=== PATIENT | female | born 1985 | race African-American/Black ===

== ENCOUNTER 2018-02-20 09:30 | Outpatient (CLI) | payer OTHER | END 2018-02-20 09:31 | disposition critical access hospital (66) | LOC: EMS 09:30 | PROVIDERS: ATTEND Surgery | DX: R42 Dizziness and giddiness (principal); R00.0 Tachycardia, unspecified; W18.39XA Other fall on same level, initial encounter; Y93.A1 Activity, exercise machines primarily for cardiorespiratory conditioning; Y92.39 Other specified sports and athletic area as the place of occurrence of the external cause | CPT/HCPCS: A0425; A0429 ==

== ENCOUNTER 2018-02-20 09:55 | Emergency (ER) | payer OTHER ==
[2018-02-20 12:03] LABS: HCG UR QUAL NEGATIVE
--- NOTE | 2018-02-20 12:20 | ED Physician Documentation ---
History of Present Illness - Stated complaint Stated Complaint: DIZZINESS - Chief complaint Chief Complaint: General - History obtained from History obtained from: Patient - History of Present Illness Timing: Prior to arrival Pain level max: 0 Pain level now: 0 - Treatment prior to arrival Treatment prior to arrival: NOTHING - Additonal information Additional information: Pt stated was on a treadmill at her job and she tripped on her foot while running to the excellent level then fell off the treadmill scraping her left knee. She was able to walk immediately. Denies any dizziness nor any symptoms prior to fall. However, her heart rate was too fast and it was not going down fast enough and pt stated she felt slightly lightheaded (not her vertigo) so she was told to go to the E.R. Pt denies any syncope or near syncope, palpitation, chest pain, SOB, nausea nor headaches. 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 - Present Medications Home Medications: Ambulatory Orders Medication Instructions Recorded Confirmed No Known Home Medications 02/20/18 02/20/18 - Allergies Allergies/Adverse Reactions: Allergies Allergy/AdvReac Type Severity Reaction Status Date / Time No Known Drug Allergies Allergy Verified 02/20/18 10:08 - Social History Does the pt smoke?: No Smoking Status: Never smoker Does the pt drink ETOH?: Yes Does the pt have substance abuse?: No - Immunizations Immunizations are current?: Yes - POLST Patient has POLST: No PD ED PE NORMAL - Vitals Vital signs reviewed: Yes - General General: Alert and oriented X 3, No acute distress, Well developed/nourished - HEENT HEENT: EOMI, Moist mucous membranes, Pharynx benign - Neck Neck: Supple, no meningeal sign, No bony TTP - Cardiac Cardiac: RRR, No murmur - Respiratory Respiratory: No respiratory distress, Clear bilaterally - Abdomen Abdomen: Normal bowel sounds, Soft, Non tender, Non distended - Back Back: No CVA TTP, No spinal TTP - Derm Derm: Normal color, Warm and dry - Extremities Extremities: No deformity, No tenderness to palpate, Normal ROM s pain, No edema, Other (ambulatory with steady gait) - Neuro Neuro: Alert and oriented X 3 - Psych Psych: Normal mood, Normal affect Results - Vitals Vitals: Vital Signs - 24 hr 02/20/18 10:02 Temperature 36.2 C L Heart Rate 87 Respiratory 15 Rate Blood Pressure 108/79 O2 Saturation 97 Oxygen O2 Source Room air - EKG (time done) 1115 Rate: Rate (enter#) Rhythm: Sinus bradycardia [place]: Normal Intervals: Normal ND QRS: Normal Ischemia: Normal ST segments - Labs Labs: Laboratory Tests 02/20/18 11:47 Ur Specific [place] 1.010 Urine HCG, Qual NEGATIVE PD MEDICAL DECISION MAKING - ED course Complexity details: considered differential (left knee contusion/abrasion, tachycardia from exercise, arrhythmia), d/w patient (Pt sitting up on the chair and feeling better and wants to go home. Pt does not want any xray, labs or work note. ) Departure - Departure Disposition: 01 Home, Self Care Clinical Impression: Muscle weakness, Dizziness Contusion of knee, left Qualifiers: Encounter type: initial encounter Qualified Code(s): S80.02XA - Contusion of left knee, initial encounter Condition: Good Instructions: ED Contusion Lower Ext, ED Dizziness [facility] Comments: FOLLOW UP WITH YOUR PCP IN 1 WEEK. MONITOR YOUR EXERCISE LEVEL SO YOU DO NOT FEEL DIZZY. YOU HAVE TO STOP WHEN FEELING DIZZY OR PALPITATIONS. ELEVATE YOUR LEFT LEG, ICE PACK TODAY, OTC TYLENOL OR MOTRIN FOR PAIN. IF WORSE RETURN TO THE E.R. Discharge Date/Time: 02/20/18 12:33
[2018-02-20 12:32] VITALS: BP 118/87
== END 2018-02-20 12:33 | disposition home or self-care (01) ==
LOC: ED 09:55
DX: M62.81 Muscle weakness (generalized) (principal); R42 Dizziness and giddiness; S80.02XA Contusion of left knee, initial encounter; W01.0XXA Fall on same level from slipping, tripping and stumbling without subsequent striking against object, initial encounter; Y93.A1 Activity, exercise machines primarily for cardiorespiratory conditioning; Y99.1 Military activity; I45.89 Other specified conduction disorders; R00.1 Bradycardia, unspecified
CPT/HCPCS: 81025; 93005; 99283